=== PATIENT | female | born 1960 | race Caucasian/White ===

== ENCOUNTER → 2018-08-04 | Outpatient (CLI) | payer OTHER ==
[~2018-08-04] MED LIST: HYDACE5 PO; PENVK500 PO
== END | disposition home or self-care (01) ==
LOC: LAB 14:12 → LAB SHORT 14:12
PROVIDERS: Nurse Practitioner
DX: Z01.419 Encounter for gynecological examination (general) (routine) without abnormal findings (principal)
CPT/HCPCS: G0145

== ENCOUNTER 2019-06-24 16:28 | Observation (INO) | payer OTHER ==
[~2019-06-24] VITALS: Ht 167.6 cm; Wt 105.0 kg
[2019-06-24 17:25] LABS: BASOPHILS ABSOLUTE AUTO 0.06 K/mm3 (0.00-0.23); BASOPHILS PERCENT AUTO 1 % (0-2); EOSINOPHILS ABSOLUTE AUTO 0.05 K/mm3 (0.00-0.68); EOSINOPHILS PERCENT AUTO 1 % (0-6); Hematocrit 39.8 % (33.0-51.0); Hemoglobin 13.4 g/dL (11.5-16.0); IMMATURE GRAN ABSOLUTE AUTO 0.04 K/mm3 (0.00-0.10); IMMATURE GRAN PERCENT AUTO 0 % (0-1); LYMPHOCYTES ABSOLUTE AUTO 1.74 K/mm3 (0.84-5.20); LYMPHOCYTES PERCENT AUTO 19 % (21-46); MONOCYTES PERCENT AUTO 7 % (4-13); Mean Corpuscular HGB 29.5 pg (26.0-34.0); Mean Corpuscular HGB Conc 33.7 g/dL (31.5-36.5); Mean Corpuscular Volume 88 fL (80-100); Mean Platelet Volume 10.5 fL (9.1-12.4); NEUTROPHILS ABSOLUTE AUTO 6.74 K/mm3 (1.96-9.15); NEUTROPHILS PERCENT AUTO 73 % (41-73); Platelet Count 243 K/mm3 (150-400); RDW Coefficient Variation 11.7 % (11.7-14.2); RDW Standard Deviation 37.7 fL (35.1-46.3); Red Blood Cell Count 4.54 M/mm3 (3.80-5.20); White Blood Cell Count 9.23 K/mm3 (4.00-11.30)
[2019-06-24 17:45] LABS: Alanine Aminotransfer (ALT/SGP 27 U/L (12-78); Albumin, Blood 3.8 g/dL (3.4-5.0); Albumin/Globulin Ratio 0.9 (0.8-1.8); Alk Phos 76 U/L (50-136); Anion Gap 6 mmol/L (6-16); Aspartate Aminotrans (AST/SGOT 17 U/L (12-37); Bilirubin, Total 0.6 mg/dL (0.1-1.0); Blood Urea Nitrogen 13 mg/dL (8-24); CO2, Blood 24 mmol/L (21-32); Calcium, Blood 9.1 mg/dL (8.5-10.1); Chloride, Blood 107 mmol/L (98-108); Creatinine, Blood 0.54 mg/dL (0.40-1.00); Globulin, Blood 4.2 g/dL (2.2-4.0); Glomerular Filtration Rate >60 (60-); Glucose, Blood 137 mg/dL (70-99); Potassium, Blood 3.7 mmol/L (3.5-5.5); Sodium, Blood 137 mmol/L (136-145); Troponin I <0.015 ng/mL (0.000-0.040)
[2019-06-25 05:05] LABS: BASOPHILS ABSOLUTE AUTO 0.04 K/mm3 (0.00-0.23); BASOPHILS PERCENT AUTO 1 % (0-2); EOSINOPHILS ABSOLUTE AUTO 0.15 K/mm3 (0.00-0.68); EOSINOPHILS PERCENT AUTO 2 % (0-6); Hematocrit 39.8 % (33.0-51.0); Hemoglobin 12.9 g/dL (11.5-16.0); IMMATURE GRAN ABSOLUTE AUTO 0.02 K/mm3 (0.00-0.10); IMMATURE GRAN PERCENT AUTO 0 % (0-1); LYMPHOCYTES ABSOLUTE AUTO 2.01 K/mm3 (0.84-5.20); LYMPHOCYTES PERCENT AUTO 26 % (21-46); MONOCYTES ABSOLUTE AUTO 0.74 K/mm3 (0.16-1.47); MONOCYTES PERCENT AUTO 10 % (4-13); Mean Corpuscular HGB 29.3 pg (26.0-34.0); Mean Corpuscular HGB Conc 32.4 g/dL (31.5-36.5); Mean Platelet Volume 10.3 fL (9.1-12.4); NEUTROPHILS ABSOLUTE AUTO 4.65 K/mm3 (1.96-9.15); NEUTROPHILS PERCENT AUTO 61 % (41-73); Platelet Count 225 K/mm3 (150-400); RDW Coefficient Variation 11.7 % (11.7-14.2); RDW Standard Deviation 38.8 fL (35.1-46.3); White Blood Cell Count 7.61 K/mm3 (4.00-11.30)
[2019-06-25 05:06] LABS: Mean Corpuscular Volume 91 fL (80-100)
[2019-06-25 05:33] LABS: Anion Gap 7 mmol/L (6-16); Blood Urea Nitrogen 13 mg/dL (8-24); Bun/Creatinine Ratio 22.8 (12.0-20.0); CO2, Blood 27 mmol/L (21-32); Calcium, Blood 8.6 mg/dL (8.5-10.1); Chloride, Blood 108 mmol/L (98-108); Creatinine, Blood 0.57 mg/dL (0.40-1.00); Glomerular Filtration Rate >60 (60-); Glucose, Blood 139 mg/dL (70-99); Potassium, Blood 3.7 mmol/L (3.5-5.5); Sodium, Blood 142 mmol/L (136-145)
--- NOTE | 2019-06-25 05:58 | NUR ---
SHIFT SUMMARY PT NEW ADMIT THIS SHIFT. AAOX4. DISCOMFORT CONTROLLED WITH 0.5MG IV DILAUDID X2 THIS AM, SMALL AMOUNTS EMESIS X2 THIS AM CONTROLLED WITH ZOFRAN. UMBILICAL HERNIA REDUCED IN ED WITH NO VISUAL CHANGES SINCE ARRIVAL TO FLOOR. INDEPENDENT IN ROOM. ORIENTED TO ROOM + CALL LIGHT USE. DR SNYDER NOTIFIED OF INCREASED NAUSEA THIS AM, ZOFRAN ORDER CHANGED + PRN ORDER FOR NGT IF EMESIS CONTINUES. PT SITTING UP IN BED AT THIS TIME REPORTING MILD NAUSEA, WILL MEDICATE PER ORDERS. CALL LIGHT WITHIN REACH + DEMONSTRATED USE.
--- NOTE | 2019-06-25 11:49 | NUR ---
KILN OPERATOR HELPER REPORT COMPLETED AT BEDSIDE, WITH DURGA TALBERT RN.
--- NOTE | 2019-06-25 12:01 | NUR ---
PT UP TO VOID.
--- NOTE | 2019-06-25 12:04 | NUR ---
PT TO DAY SURGERY AT APPROX 1130
--- NOTE | 2019-06-25 16:00 | NUR ---
POST OP S/P HERNIA REPAIR WITH MESH. POST OP VS IN PROGRESS. GAUZE TO UMBILICUS CDI WITH BINDER IN PLACE. PT HAS BEEN NAUSEATED ALL SHIFT. RECEIVING ZOFRAN Q2 PRN. TOLERATING 0.5MG IV DILAUDID FOR PAIN PRN PRE OP BUT PT REPORTS MINIMAL PAIN POST OP. GETTING UP WITH 1 SBA TO RESTROOM. IVF INFUSING PER ORDERS. FAMILY AT BEDSIDE FOR SUPPORT. CALL LIGHT WITHIN REACH.
--- NOTE | 2019-06-26 05:30 | NUR ---
SHIFT SUMMARY: PT POD #1 FOR UMBILICAL HERNIA REPAIR. A&O X4. VS WNL. DENIES N/V. TOLERATING CLEAR LIQUID DIET. FLUIDS INFUSING. MEDIPORE DRESSING TO ABD CDI WITH ABD BINDER IN PLACE. PAIN MANAGED WITH 1-2 NORCO PER EMAR. PT INDEPENDENT IN ROOM AND VOIDING WELL.
--- NOTE | 2019-06-26 17:17 | NUR ---
SHIFT SUMMARY PT HAS DONE WELL THIS SHIFT. PT MEDICATED WITH 1 NORCO FOR PAIN PRN. MELITA REG DIET WITH NO NAUSEA. UP IN ROOM INDEP. DRESSING TO ABD IS CDI WITH BINDER IN PLACE. PT EXPECTED TO DISCHARGE TOMORROW. PT NOT COMFORTABLE DISCHARGING TODAY.
[2019-06-27 03:48] LABS: BASOPHILS ABSOLUTE AUTO 0.05 K/mm3 (0.00-0.23); BASOPHILS PERCENT AUTO 1 % (0-2); EOSINOPHILS ABSOLUTE AUTO 0.05 K/mm3 (0.00-0.68); EOSINOPHILS PERCENT AUTO 1 % (0-6); Hematocrit 36.4 % (33.0-51.0); Hemoglobin 11.9 g/dL (11.5-16.0); IMMATURE GRAN ABSOLUTE AUTO 0.02 K/mm3 (0.00-0.10); IMMATURE GRAN PERCENT AUTO 0 % (0-1); LYMPHOCYTES ABSOLUTE AUTO 2.43 K/mm3 (0.84-5.20); LYMPHOCYTES PERCENT AUTO 33 % (21-46); MONOCYTES ABSOLUTE AUTO 0.62 K/mm3 (0.16-1.47); MONOCYTES PERCENT AUTO 8 % (4-13); Mean Corpuscular HGB 28.9 pg (26.0-34.0); Mean Corpuscular HGB Conc 32.7 g/dL (31.5-36.5); Mean Platelet Volume 10.6 fL (9.1-12.4); NEUTROPHILS ABSOLUTE AUTO 4.19 K/mm3 (1.96-9.15); NEUTROPHILS PERCENT AUTO 57 % (41-73); Platelet Count 223 K/mm3 (150-400); RDW Coefficient Variation 11.8 % (11.7-14.2); RDW Standard Deviation 37.6 fL (35.1-46.3); Red Blood Cell Count 4.12 M/mm3 (3.80-5.20); White Blood Cell Count 7.36 K/mm3 (4.00-11.30)
[2019-06-27 03:49] LABS: Mean Corpuscular Volume 88 fL (80-100)
[2019-06-27 04:06] LABS: Anion Gap 5 mmol/L (6-16); Blood Urea Nitrogen 14 mg/dL (8-24); Bun/Creatinine Ratio 21.4 (12.0-20.0); CO2, Blood 30 mmol/L (21-32); Chloride, Blood 108 mmol/L (98-108); Creatinine, Blood 0.65 mg/dL (0.40-1.00); Glomerular Filtration Rate >60 (60-); Glucose, Blood 136 mg/dL (70-99); Potassium, Blood 3.6 mmol/L (3.5-5.5); Sodium, Blood 143 mmol/L (136-145)
--- NOTE | 2019-06-27 06:18 | NUR ---
POD 2 S/P UMBILICAL HERNIA REPAIR. PT VSS T/O NIGHT, DRESSING CDI. PT DENIED PAIN, OR NEED FOR PAIN MEDS. PT MELITA REG PO, REP +FLATUS, IS VOIDING URINE W/O DIFFICULTY. PT AMB INDEP IN ROOM, IS USING CALL LIGHT FOR ASSISTANCE, WILL CONT TO MONITOR UNTIL REP GIVEN TO ONCOMING RN.
--- NOTE | 2019-06-27 13:25 | NUR ---
PT DOES NOT FEEL COMFORTABLE GOING HOME PT DISCUSSED W/DR SKELTON. WILL DC HOME TOMORROW.
--- NOTE | 2019-06-27 17:37 | NUR ---
SUMMARY NO ACUTE CHANGES T/O SHIFT. PT INDEPENDENT. AMBULATED IN HALLS TWICE DURING SHIFT. NAPPED THIS AFTERNOON. TOLERATING REGULAR DIET. PAIN WELL CONTROLLED PER EMAR. CALL LIGHT IN REACH.
--- NOTE | 2019-06-28 05:33 | NUR ---
POD 4 S/P UMBILICAL HERNIA REPAIR W/MESH. PT VSS T/O NIGHT. STERI STRIPS CDI, ABD BINDER IN PLACE WHEN UP AND AMBULATING. PAIN MGD W/PO PAIN MEDS W/REP RELIEF. PT MELITA REG PO, NO C/O N/V, IS PASSING FLATUS, NO BM THIS SHIFT. PT AMB INDEP, MELITA WELL. PLAN TO D/C HOME TODAY. WILL CONT TO MONITOR UNTIL REP GIVEN TO ONCOMING RN.
[2019-06-28] MEDS ORDERED: HYDR1TAB94 PO (11:34)
--- NOTE | 2019-06-28 14:54 | NUR ---
DISCHARGE: REVIEWED DC PAPERWORK WITH PT. SCRIPT GIVEN. PT VERBALIZED UNDERSTANDING. LEFT UNIT ON FOOT WITH AT [id number]
== END 2019-06-28 13:35 | disposition home or self-care (01) ==
LOC: ER 16:28 → SURS 16:29
PROVIDERS: Physician Assistant; ADMIT Surgery
PROC: 0WUF0JZ Supplement Abdominal Wall with Synthetic Substitute, Open Approach (ICD-10-PCS; principal; 2019-06-25 12:00)
DX: K42.0 Umbilical hernia with obstruction, without gangrene (principal); K63.89 Other specified diseases of intestine
CPT/HCPCS: 36415; 74018; 74177; 80048; 80053; 83690; 84484; 85025; 93005; 93010; 96361; 96365-59; 96375; 96376; 99285-25; A9270-GY; C1713; C1781; G0378; J1100; J1170; J1885; J2250; J2405; J2543; J2704; J2710; J3010; J7030; J7120; Q9967